=== PATIENT | male | born 1970 | race Caucasian/White ===

== ENCOUNTER 2021-07-31 10:35 | Emergency (ER) | payer BC, OTHER ==
[~2021-07-31] VITALS: Ht 177.8 cm; Wt 134.0 kg
--- NOTE | 2021-07-31 11:18 | RAD ---
EXAM: Chest, single view. HISTORY: COPD exacerbation. COMPARISON: 12/14/2015 FINDINGS: A frontal view of the chest is obtained. There is no infiltrate, pleural effusion or pneumo thorax. There are chronic appearing interstitial changes. The heart is normal in size. IMPRESSION: No acute pulmonary finding. Electronically signed by: Suzi Cabral MD (07/31/2021 11:16 AM) [id number]
[2021-07-31] MEDS ORDERED: IPRATRPIUM/ALBUTEROL 0.5/2.5MG 3 ML NEBU. ONE (11:21)
[2021-07-31] MEDS ORDERED: BUDESONIDE 0.5 MG/2 ML NEBU NEB ONE (11:30)
[2021-07-31] MEDS ORDERED: predniSONE 20 MG TABLET PO ONE (11:30)
[2021-07-31] MEDS ORDERED: IPRATRPIUM/ALBUTEROL 0.5/2.5MG 3 ML NEBU. NEB ONE (11:30)
[2021-07-31 11:55] VITALS: BP 140/89
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
[2021-07-31] MEDS ORDERED: PRED20TA PO (12:22)
[2021-07-31] MEDS ORDERED: ALBU2.5V8 IH (12:22)
[2021-07-31] MEDS ORDERED: ALBU2.5V5 NEB (12:22)
[2021-07-31] MEDS ORDERED: AZIT250T6 PO (12:22)
== END 2021-07-31 12:29 | disposition home or self-care (01) ==
LOC: ER 10:35
DX: J44.1 Chronic obstructive pulmonary disease with (acute) exacerbation (principal); I10 Essential (primary) hypertension; Z87.891 Personal history of nicotine dependence; Z88.5 Allergy status to narcotic agent; Z88.0 Allergy status to penicillin; Z88.8 Allergy status to other drugs, medicaments and biological substances
CPT/HCPCS: 71045; 94640; 99284; J7512

== ENCOUNTER 2021-09-14 14:54 | Emergency (ER) | payer OTHER, BC ==
[~2021-09-14] VITALS: Ht 177.8 cm; Wt 134.0 kg
[~2021-09-14 14:54] MED LIST: ALBU2.5V5 NEB; ALBU2.5V8 IH; AZIT250T6 PO; PRED20TA PO
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
[2021-09-14 16:30] VITALS: BP 152/90
== END 2021-09-14 16:40 | disposition home or self-care (01) ==
LOC: ER 14:54
DX: R51.9 Headache, unspecified (principal); M54.2 Cervicalgia; M25.552 Pain in left hip; J44.9 Chronic obstructive pulmonary disease, unspecified; I10 Essential (primary) hypertension; F17.200 Nicotine dependence, unspecified, uncomplicated; Z88.6 Allergy status to analgesic agent; Z88.5 Allergy status to narcotic agent; Z88.0 Allergy status to penicillin; V43.52XA Car driver injured in collision with other type car in traffic accident, initial encounter; Y93.I9 Activity, other involving external motion; Y92.89 Other specified places as the place of occurrence of the external cause; Y99.8 Other external cause status
CPT/HCPCS: 70450; 71045; 72125; 73502; 99284